=== PATIENT | female | born 1950 | race Caucasian/White ===

== ENCOUNTER 2017-01-20 22:16 | Emergency (ER) | payer OTHER ==
[~2017-01-20] VITALS: Ht 162.6 cm; Wt 105.9 kg
[~2017-01-20 22:16] MED LIST: Advair HFA 115/21 IH; B-COMPLEX-VITA1 EACH; BACTRIM,SEPT1 TABLET PO; CARDIZEM CD240 MG PO; CARDIZEM120 MG PO; Catapres-TTS 2 TD; DIAZEPAM5 MG PO; FLONASE16 G1 BOTH NARES; HYDROCHLOROTHIA25 MG PO; HYDROCODON-ACE1 EAC8 PO; IBUPROFEN200 M1 PO; LEVOTHROID25 MCG PO; MUCINEX600 MG PO; MULTI-VITAMIN1 EAC4; PRINIVIL20 MG PO; Robitussin, Organidi PO; TOPROL XL50 MG PO; TYLENOL REGULA325 MG PO; Theragran PO; VALIUM5 MG PO; VITAMIN D-32000 UNI2 PO; VITAMIN D-32000 UNIT PO; Zithromax PO; advair
[2017-01-21 00:01] LABS: HEMATOCRIT 40.7 % (36.0-46.0); MCH 29.7 PG (29.0-34.0); MCHC 34.4 G/DL (30.0-36.0); MCV 86.2 FL (83-99); MEAN PLAT.VOLUME 9.1 uM^3 (9.5-12.4); PLATELET COUNT 198 K/uL (156-360); RBC DIS.WIDTH-CV 12.2 % (11.8-14.6); RBC DIS.WIDTH-SD 38.5 % (39-53); RED BLOOD COUNT 4.72 M/uL (3.80-5.20); WHITE BLOOD COUNT 6.2 K/uL (4.1-10.2)
[2017-01-21 00:11] LABS: CHLORIDE 103 mEq/L (99-109); POTASSIUM 4.1 mEq/L (3.7-5.4); SODIUM 137 mEq/L (136-147)
[2017-01-21 00:12] LABS: D-DIMER ELISA 0.72 mg/L FEU (< 0.57)
[2017-01-21 00:13] LABS: GLUCOSE 106 mg/dL (70-99)
[2017-01-21 00:14] LABS: ANION GAP 10 MEQ/L (2-14)
[2017-01-21 00:17] LABS: GFR ESTIMATE (CALCULATED) > 59 mL/min/
[2017-01-21 00:18] LABS: UREA NITROGEN (BUN) 8 mg/dL (9-23)
[2017-01-21 00:22] LABS: TROP-I INTERPRETATION NEGATIVE; TROPONIN-I < 0.01 ng/mL (0.0-0.30)
[2017-01-21 02:46] LABS: TROP-I INTERPRETATION NEGATIVE; TROPONIN-I < 0.01 ng/mL (0.0-0.30)
[2017-01-21 03:07] VITALS: BP 164/84
== END 2017-01-21 03:08 | disposition home or self-care (01) ==
LOC: EME 22:16
PROVIDERS: Physician Assistant Medical
DX: J40 Bronchitis, not specified as acute or chronic (principal); R91.8 Other nonspecific abnormal finding of lung field; I70.0 Atherosclerosis of aorta; I10 Essential (primary) hypertension; Z88.8 Allergy status to other drugs, medicaments and biological substances; Z87.891 Personal history of nicotine dependence; Z90.49 Acquired absence of other specified parts of digestive tract
CPT/HCPCS: 71020; 71275; 80048; 84484; 85027; 85379; 93005; 94640; 99281; 99285; J7030

== ENCOUNTER 2017-02-06 05:48 | Emergency (ER) | payer OTHER ==
[~2017-02-06] VITALS: Ht 162.6 cm; Wt 106.5 kg
[2017-02-06] MEDS ORDERED: PREDNISONE50 MG PO (09:34)
[2017-02-06 09:53] VITALS: BP 163/92
== END 2017-02-06 09:57 | disposition home or self-care (01) ==
LOC: EME → EDBD 05:48 → EME 09:57
DX: J44.1 Chronic obstructive pulmonary disease with (acute) exacerbation (principal); R53.83 Other fatigue; K30 Functional dyspepsia; I10 Essential (primary) hypertension; E03.9 Hypothyroidism, unspecified; Z90.49 Acquired absence of other specified parts of digestive tract; I44.0 Atrioventricular block, first degree; Z87.891 Personal history of nicotine dependence
CPT/HCPCS: 71010; 93005; 94640; 94640 76; 99281; 99284; J7512